=== PATIENT | male | born 1955 | race African-American/Black ===

== ENCOUNTER 2021-03-04 09:50 | Emergency (ER) | payer OTHER ==
[~2021-03-04] VITALS: Ht 172.7 cm; Wt 90.3 kg
[2021-03-04 10:38] LABS: ABSOLUTE NEUTROPHILS 7.4 thou/uL (1.4-8.2); BASOPHILS 0.6 % (0.0-2.0); HEMATOCRIT 53.9 % (42.0-52.0); LYMPHOCYTES 11.6 % (24.0-44.0); MCH 21.7 pg (26.0-34.0); MCHC 31.6 g/dL (28.0-37.0); MCV 68.5 fL (80.0-100.0); MONOCYTES 15.2 % (1.0-8.0); PLATELET COUNT 244 thou/uL (150-400); POLYS 72.6 % (36.0-66.0); WBC 10.2 thou/uL (4.0-11.0)
[2021-03-04 10:39] LABS: RBC 7.86 mil/uL (4.50-6.00)
[2021-03-04 11:01] VITALS: BP 129/89
[2021-03-04 11:59] LABS: CALCIUM 8.5 mg/dL (8.5-10.1); CREATININE 1.9 mg/dL (0.7-1.3); POTASSIUM 4.7 mmol/L (3.5-5.1)
[2021-03-04 12:05] LABS: ALBUMIN 3.4 g/dL (3.4-5.0); TOTAL BILIRUBIN 0.4 mg/dL (0.2-1.0); TOTAL PROTEIN 8.1 g/dL (6.4-8.2)
[2021-03-04 13:49] LABS: ANISOCYTOSIS 2+; MICROCYTES 2+; POIKILOCYTOSIS 2+
== END 2021-03-04 12:46 | disposition home or self-care (01) ==
LOC: ER 09:50
PROVIDERS: Emergency Medicine
DX: U07.1 COVID-19 (principal); R11.2 Nausea with vomiting, unspecified; E11.9 Type 2 diabetes mellitus without complications

== ENCOUNTER 2021-03-08 19:12 | Inpatient (IN) | payer OTHER ==
[~2021-03-08] VITALS: Ht 172.7 cm; Wt 91.0 kg
[2021-03-08 19:20] VITALS: BP 146/94
[2021-03-08 20:10] LABS: HCO3 16.1 mmol/L (22.0-26.0); PCO2 27.9 mmHg (35.0-45.0); PO2 76.9 mmHg (80.0-100.0); sO2 95.4 % (92.0-98.0)
[2021-03-08 20:47] LABS: ALBUMIN 2.4 g/dL (3.4-5.0); CALCIUM 8.5 mg/dL (8.5-10.1); DIRECT BILIRUBIN 0.1 mg/dL (<0.1-0.2); MAGNESIUM 4.2 mg/dL (1.8-2.4); PHOSPHORUS 5.8 mg/dL (2.5-4.9); TOTAL BILIRUBIN 0.4 mg/dL (0.2-1.0); TOTAL PROTEIN 8.1 g/dL (6.4-8.2)
[2021-03-08 21:29] LABS: CREATININE 2.3 mg/dL (0.7-1.3)
[2021-03-08 21:30] LABS: HEMATOCRIT 49.5 % (42.0-52.0); HEMOGLOBIN 15.3 gm/dL (14.0-18.0); MCH 21.5 pg (26.0-34.0); MCV 69.5 fL (80.0-100.0); PLATELET COUNT 294 thou/uL (150-400); RDW 15.3 % (10.5-14.5); WBC 14.3 thou/uL (4.0-11.0)
[2021-03-08 21:36] LABS: RBC 7.13 mil/uL (4.50-6.00)
[2021-03-08 21:44] LABS: POTASSIUM 6.4 mmol/L (3.5-5.1)
[2021-03-08 22:45] LABS: ANISOCYTOSIS 2+; ATYPICAL LYMPHS 2 %; METAMYELOCYTES 2 %; POIKILOCYTOSIS 2+
[2021-03-08 22:46] LABS: TARGET CELLS 1+; TEARDROPS 1+
[2021-03-08 23:48] VITALS: BP 129/80
[2021-03-08 23:57] LABS: URINE BILIRUBIN NEGATIVE (Negative); URINE BLOOD 2+ (Negative); URINE CLARITY CLEAR; URINE COLOR YELLOW; URINE GLUCOSE-RANDOM* 3+ (Negative); URINE KETONES 1+ (Negative); URINE LEUKOCYTES-REFLEX NEGATIVE (Negative); URINE NITRITE-REFLEX NEGATIVE (Negative); URINE PROTEIN (DIPSTICK) 1+ (Negative); URINE SPECIFIC GRAVITY 1.025 (1.005-1.035); URINE UROBILINOGEN 0.2 E.U./dl (0.2-1.0)
[2021-03-09 01:18] LABS: POTASSIUM 4.9 mmol/L (3.5-5.1)
[2021-03-09 01:19] LABS: CREATININE 1.8 mg/dL (0.7-1.3); MAGNESIUM 3.9 mg/dL (1.8-2.4)
[2021-03-09 01:29] LABS: BACTERIA-REFLEX 1-9 Few /HPF (None Seen); CELLULAR CASTS 0-3 Few /LPF (None Seen); CRYSTALS None Seen /LPF (None Seen); HYALINE CASTS 0-3 Few /LPF (None Seen); MUCUS 0-3 Light strn/LPF (None Seen); SQUAMOUS 0-3 Few /LPF (0-3); URINE RBC 3-10 Few /HPF (NONE SEEN); URINE WBC-REFLEX 0-5 Rare /HPF (0-5)
[2021-03-09 01:53] LABS: PHOSPHORUS 4.3 mg/dL (2.5-4.9)
[2021-03-09 07:20] LABS: CREATININE 1.6 mg/dL (0.7-1.3); MAGNESIUM 3.9 mg/dL (1.8-2.4); PHOSPHORUS 2.5 mg/dL (2.5-4.9); POTASSIUM 4.3 mmol/L (3.5-5.1)
--- NOTE | 2021-03-09 07:49 | EKG ---
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
--- NOTE | 2021-03-09 10:06 | EKG ---
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
--- NOTE | 2021-03-09 10:26 | 2DMMODE ---
[facility] [place] [address] 2 D/M-MODE ECHOCARDIOGRAM Name: DAREK ASKEW Room #: 170-11 ADM IN M.R.#: [id number] Admission: 03/08/21 Attend Phys: Lalo Gonzalez MD Discharge: Date of : 55 Report #: [id number] THIS REPORT FOR: cc: FAM - Family physician unknown FAM - Family physician unknown Jorge Luis Woodward MD [facility] ~ APPROVED REPORT Study performed: 03/09/2021 09:55:52 EXAM: Limited 2D, Doppler, and color-flow Echocardiogram Patient Location: ER Status: routine BSA: 2.04 HR: 100 bpm BP: 130/76 mmHg Rhythm: Tachycardia Other Information Study Quality: Adequate Indications Abnormal EKG. COVID + Aortic Valve AoV Peak Guero.: 1.13 m/s AO Peak Gr.: 5.13 mmHg Mitral Valve E/A Ratio: 0.8 MV Decel. Time: 215.64 ms MV E Max Guero.: 0.61 m/s MV A Guero.: 0.75 m/s MV PHT: 62.53 ms Pulmonary Valve PV Peak Guero.: 0.77 m/s PV Peak Gr.: 2.36 mmHg Tricuspid Valve RAP Estimate: 5.00 mmHg Left Ventricle The left ventricle is normal size. There is normal LV segmental wall motion. There is normal left ventricular wall thickness. Left [facility] [address] [place] [address] 2 D/M-MODE ECHOCARDIOGRAM Name: DAREK ASKEW Room #: 170-11 ADM IN M.R.#: [id number] Admission: 03/08/21 Attend Phys: Lalo Gonzalez, Discharge: Date of : 55 Report #: [id number] ventricular systolic function is normal. LVEF is 55-60%. Mild diastolic dysfunction is present (impaired relaxation pattern). Right Ventricle The right ventricle is normal size. The right ventricular systolic function is normal. Atria The left atrium size is normal. The right atrium size is normal. Aortic Valve The aortic valve is normal in structure. No aortic regurgitation is present. There is no aortic valvular stenosis. Mitral Valve The mitral valve is normal in structure. There is no mitral valve regurgitation noted. No evidence of mitral valve stenosis. Tricuspid Valve The tricuspid valve is normal in structure. There is no tricuspid valve regurgitation noted. Unable to assess PA pressure. Pulmonic Valve The pulmonary valve is normal in structure. There is no pulmonic valvular regurgitation. Great Vessels The aortic root is normal in size. IVC is normal in size and collapses >50% with inspiration. Pericardium There is no pericardial effusion. <Conclusion> Normal left ventricular size/wall thickness Ejection fraction of 60% Grade 1 diastolic dysfunction Normal right ventricular size/function Normal atrial size Normal aortic/mitral valve structure and function No tricuspid valve insufficiency [facility] [address] [place] [address] 2 D/M-MODE ECHOCARDIOGRAM Name: AZARDAREK Room #: 170-11 ADM IN M.R.#: [id number] Admission: 03/08/21 Attend Phys: Lalo Gonzalez, Discharge: Date of : 55 Report #: [id number] No pericardial effusion Normal aortic root size. <ELECTRONICALLY SIGNED> By: Jorge Luis Woodward MD, FACC 03/09/215 1025 24 Jorge Luis Woodward MD, FACC /INF
[2021-03-09 14:45] VITALS: BP 126/78
[2021-03-09 18:21] VITALS: BP 140/80
[2021-03-09 22:45] VITALS: BP 122/77
[2021-03-10] VITALS (8 sets, daily range): BP systolic 105–140; BP diastolic 60–91
--- NOTE | 2021-03-10 04:08 | NUR ---
ADMIT FROM ED. PRESENTED WITH WEAKNESS, FEELING THOUGH FSBS ELEVATED, DEHYDRATION. POSITIVE FOR COVID SINCE 03/04/21. PT BOARDED IN ED SINCE YESTERDAY, RECEIVED INSULIN DRIP AND IVF FOR FSBS OF 590. PT VERBALIZED UNDERSTANDING OF NEED FOR UA. MRSA OBTAINED. PT VERBALIZED NEED TO CALL FOR ASSIST FOR AMBULATION DUE TO WEAKNESS AND IVF. MED HX BPH, HIGH CHOLESTEROL, COVID.
--- NOTE | 2021-03-10 04:19 | NUR ---
TALKED WITH CT, CONTACTED PROVIDER RE ELEVATED CREATNINE AND PROTOCOL. LABS BEING DRAWN, WAITING ON NEW LAB RESULTS PRIOR TO CT.
[2021-03-10 04:59] LABS: BASOPHILS 0.2 % (0.0-2.0); HEMATOCRIT 45.3 % (42.0-52.0); HEMOGLOBIN 13.6 gm/dL (14.0-18.0); LYMPHOCYTES 4.1 % (24.0-44.0); MCHC 30.1 g/dL (28.0-37.0); MCV 69.6 fL (80.0-100.0); PLATELET COUNT 255 thou/uL (150-400); POLYS 90.7 % (36.0-66.0); RDW 15.1 % (10.5-14.5); WBC 13.2 thou/uL (4.0-11.0)
[2021-03-10 05:38] LABS: ALBUMIN 1.8 g/dL (3.4-5.0); ANION GAP 11 mmol/L (7-16); BUN 37 mg/dL (7-18); CHLORIDE 116 mmol/L (98-107); CO2 22 mmol/L (21-32); CREATININE 1.3 mg/dL (0.7-1.3); GLUCOSE 276 mg/dL (74-106); POTASSIUM 4.9 mmol/L (3.5-5.1); SGOT 39 U/L (15-37); SGPT 25 U/L (30-65); SODIUM 149 mmol/L (136-145); TOTAL BILIRUBIN 0.3 mg/dL (0.2-1.0); TOTAL PROTEIN 6.4 g/dL (6.4-8.2)
[2021-03-10 06:06] LABS: GLYCOHEMOGLOBIN (HGB A1C) 11.1 % (4.8-5.6)
--- NOTE | 2021-03-10 06:15 | NUR ---
CT CALLED LEFT MESSAGE THAT LAURENCE WNL, SO THAT CT CAN BE OBTAINED.
--- NOTE | 2021-03-10 06:47 | NUR ---
PT INSTRUCTED TO USE URINAL, HOWEVER HE URINATED ON FLOOR. BED ALARM ON. PT REMINDED OF NEED FOR URINE SAMPLE.
--- NOTE | 2021-03-10 18:06 | NUR ---
ASSUMED PATIENT CARE AT 0700. A/O X4. INCREATED 02 NEEDS. PATIENT IS ON 4L/NC. VQ SCAN NEGATIVE FOR PE. NOTED HR UP TO 180 AT 1720. POWERTRAIN CALIBRATION ENGINEER CALLED SEE CHART. IV TEAM IS HERE INSERT PICC LINE TO INFUSION AMIO GTT. VSS. LOW GRADE TEMP. WILL KEEP MONITOR.
[2021-03-10 18:17] LABS: CREATININE 1.2 mg/dL (0.7-1.3); POTASSIUM 4.4 mmol/L (3.5-5.1)
[2021-03-10 18:29] LABS: MAGNESIUM 3.4 mg/dL (1.8-2.4)
[2021-03-11] VITALS: BP 122/77
--- NOTE | 2021-03-11 00:56 | NUR ---
PT ALERT AND ORIENTED X2. MILDLY CONFULSED. INSTRUCTED ON FALL PRECAUTIONS AND NOT TO GET OOB WITHOUT HELP. CALL LIGHT IN REACH. BED ALARM IS ON. HR WAS AFIB IN 160-180S AT START OF SHIFT. AMIODARONE GTT INFUSING AT 33ML/HR. NOTIFIED DR SHELBY HR ELEVATED. TOPROLOL 50 MG GIVEN PO ORDERED. HR STILL HIGH. DIGOXIN GIVEN 0.5MG IV. HR NOW IN SR RT 96. PT IS SLEEPING QUIETLY. NO S/S DISTRESS. DR RODRIGUEZ CAME TO SEE PT. REMDESIVIR STARTED ORDERED. WILL CONTINUE TO MONITOR PT FOR CHANGES.
[2021-03-11 03:47] VITALS: BP 124/70
[2021-03-11 05:30] VITALS: BP 117/73
[2021-03-11 05:49] LABS: HEMOGLOBIN 12.3 gm/dL (14.0-18.0); MCH 21.1 pg (26.0-34.0); MCHC 30.8 g/dL (28.0-37.0); MCV 68.4 fL (80.0-100.0); PLATELET COUNT 273 thou/uL (150-400); RBC 5.86 mil/uL (4.50-6.00); WBC 9.3 thou/uL (4.0-11.0)
[2021-03-11 06:04] LABS: ALBUMIN 1.6 g/dL (3.4-5.0); CALCIUM 7.6 mg/dL (8.5-10.1); CREATININE 1.1 mg/dL (0.7-1.3); POTASSIUM 4.9 mmol/L (3.5-5.1); TOTAL BILIRUBIN 0.3 mg/dL (0.2-1.0); TOTAL PROTEIN 6.1 g/dL (6.4-8.2)
[2021-03-11 07:12] VITALS: BP 122/69
--- NOTE | 2021-03-11 08:28 | NUR ---
NOTIFIED DR GREENBERG PT'S HR INCREASED BACK UP TO 150'S . ANOTHER 150mg IV AMIODARONE BOLUS GIVEN ORDERED. HR DOWN TO 130S SINCE THEN. PT ASYMPTOMATIC THROUGH OUT NIGHT. NOTIFIED PARACHUTE RIGGER PT HAS A TEMP THIS AM. TYLENOL GIVEN. NO OTHER ORDERS GIVEN REGARDING TEMP. AFEW BLANKETS REMOVED AND IPAIR OF SOCKS REMOVED.
[2021-03-11 08:53] LABS: ANISOCYTOSIS 1+; METAMYELOCYTES 1 %; MICROCYTES 2+; PLATELET ESTIMATE NORMAL
--- NOTE | 2021-03-11 12:58 | EKG ---
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1955 Requested By: Arsenio Watkins Order Number: [id number] MD: Ulysses Antonio Measurements Intervals [place] Rate: 178 P: [place]: QRS: 47 QRSD: 91 T: -6 QT: 277 QTc: 477 Interpretive Statements Atrial fibrillation with rapid V-rate Occasional aberrant conduction Nonspecific ST segment abnormality Baseline wander in lead(s) V1,V2,V3 Compared to ECG 03/09/2021 08:39:33 Atrial fibrillation has replaced sinus rhythm Electronically Signed On 03-11-2021 12:57:49 MARKETING SEGMENT MANAGER by Ulysses Antonio [email or web address] <ELECTRONICALLY SIGNED> By: Ulysses Antonio MD, [facility] 03/11/21 1257 1725 1725 Ulysses Antonio MD, [facility] /EPI
[2021-03-11 15:40] VITALS: BP 129/80
[2021-03-11 19:16] VITALS: BP 122/82
--- NOTE | 2021-03-12 00:51 | NUR ---
PT ALERT AND ORIENTED X3. REORIENTED TO CORRECT PLACE. VSS AFEBRILE. UMLABORED ON 5LNC. HR AFIB ON MONITOR MAINLY IN THE 120S. DENIED PAIN. PT STATED HE IS FEELING BETTER THAN YESTERDAY. NO N/V TONIGHT. BED DOWN CALL LIGHT IN REACH.
--- NOTE | 2021-03-12 02:39 | NUR ---
PT RESTING QUIETLY. VSS AFEBRILE. UNLABORED ON 5LNC. AMIODARONE GTT INFUSING. HR FLUCTUATING 110s-130s. MAINLY IN 120s. PT ASYMPTOMATIC. NO C/O.
[2021-03-12 03:30] VITALS: BP 117/76
[2021-03-12 06:06] LABS: HIV ANTIBODY Non Reactive (Non Reactive)
[2021-03-12 06:11] LABS: ALBUMIN 1.5 g/dL (3.4-5.0); CALCIUM 7.7 mg/dL (8.5-10.1); CREATININE 1.2 mg/dL (0.7-1.3); DIRECT BILIRUBIN 0.1 mg/dL (<0.1-0.2); PHOSPHORUS 2.1 mg/dL (2.6-4.7); POTASSIUM 4.6 mmol/L (3.5-5.1); TOTAL BILIRUBIN 0.3 mg/dL (0.2-1.0)
--- NOTE | 2021-03-12 06:30 | NUR ---
PT PROGRESSING TOWAARDS D/C GOALS. VSS. HR 110-120S PRESENTLY. NO C/O PAIN. NO S/S DISTRESS. AMIODARONE STILL INFUSING.
[2021-03-12 07:08] VITALS: BP 145/89
--- NOTE | 2021-03-12 08:30 | NUR ---
PT NOTED TO HAVE LT HAND/LT ARM EDEMA 3-4+...NOTIFIED DR LEWIS AND PLACED ORDER FOR A VENOUS DOPPLER TO EDWARD...PAGED IV TEAM TO ASSESS PICC...
[2021-03-12 15:14] VITALS: BP 118/73
--- NOTE | 2021-03-12 16:00 | NUR ---
PT VENOUS DOPPLER SHOWED OCCLUSIVE DVT TO BRACHIAL VEIN AND NONOCCLUSIVE SUPERFICIAL THROMBUS TO LT CEPHALIC VEIN..NOTIFIED DR LEWIS ANS HE STATED TO DC THE PICC LINE AND PLACE WARM WASHCLOTHS TO LT ARM...INFORMED DR LEWIS THAT CARDIOLOGY DC'D HEPARIN TODAY AND STARTED ELIQUIS FOR THIS SALINAS...
--- NOTE | 2021-03-12 16:02 | NUR ---
INITIAL ASSESSMENT: Received consult. MAI reviewed chart and spoke with nursing and attending physician. Pt was admitted from home due to hyperglycemia, weakness, COVID. Pt placed in Enhanced Isolation. Per chart, pt has not received a COVID vaccination. Pt is afebrile and on 5L of O2. Pt is on IV meds and Remdesivir. Pt is amio gtt per cardiology. RESTORATIVE AIDE called due to Afib. UE doppler ordered today to r/o DVT. PT/OT evals on hold at this time. MAI placed call to pt's room. No answer. Pt noted to be alert/orientated x 4. Pt lives at home. MAI notified that pt's listed insurance ([employer]) covers first 5 days of hospitalization. Pt does have Medicare Part A as secondary insurance. MAI is following to assist as needed with discharge planning.
[2021-03-12 19:22] VITALS: BP 107/70
[2021-03-13] VITALS (23 sets, daily range): BP systolic 106–144; BP diastolic 65–98
--- NOTE | 2021-03-13 01:20 | NUR ---
PT ALERT X2. MILDLY CONFUSED AT TIMES. HE ACCIDENTALLY PULLED OUT HIS IV WHILE ATTEMPTING TO MOVE UP IN BED. UPON ASSESSING PT, PT'S LEFT FOOT WAS COOLER THAN RIGHT FOOT AND LEG. HE STATED HE WAS HAVING DIFFICULTY WARMING UP.
--- NOTE | 2021-03-13 01:37 | NUR ---
NOTIFED SHOW HOST/HOSTESS. US ARTERIAL DOPPLERS DONE AND RESULTS CALLED TO ME BY RADIOLOGIST. I THEN CALLED SHOW HOST/HOSTESS WITH RESULTS FOR FEMORAL ARTERY OCCLUSION. DR REEVES NOTIFIED. DR PARISH REQUESTED HEPARIN GTT TO BE STARTED. NETWORK SYSTEMS CONSULTANT CHRISTI WAS NOTIFIED OF NO IV ACCESS AT THE TIME. AMIDARONE GTT DC'D AND WILL START PO IN AM TO BE ORDERED BY ROUNDING NETWORK SYSTEMS CONSULTANT IN AM. PT IN NSR PRESENTLY 80S. HEPARIN GTT BOLUS GIVEN AND DRIP WAS ABOUT TO BE STARTED. FARM MACHINERY ASSEMBLER SPOKE WITH DR RING AND DR RING DECIDED TO COME IN TO SEE PT AND DO SURGERY TONIGHT HEPARIN BOLUS WAS GIVEN BUT DRIP HAD NOT BEEN INITIATED YET. HEPARIN DC'D. DR RING CAME JANIA SEE PT. AND DI FEMORAL STICK TO OBTAIN LABS. LEFT EJ PLACED BY LUI FROM ER. PT MADE NPO FOR THROMBOLECTOMY.
[2021-03-13 02:09] LABS: ABSOLUTE NEUTROPHILS 1.8 thou/uL (1.4-8.2); BASOPHILS 0.2 % (0.0-2.0); EOSINOPHILS 3.4 % (0.0-3.0); HEMATOCRIT 42.9 % (42.0-52.0); HEMOGLOBIN 13.6 gm/dL (14.0-18.0); LYMPHOCYTES 19.1 % (24.0-44.0); MCH 21.2 pg (26.0-34.0); MCHC 31.7 g/dL (28.0-37.0); MONOCYTES 6.2 % (1.0-8.0); POLYS 71.1 % (36.0-66.0); RDW 14.7 % (10.5-14.5); WBC 2.5 thou/uL (4.0-11.0)
[2021-03-13 02:12] LABS: PLATELET COUNT 119 thou/uL (150-400)
[2021-03-13 02:15] LABS: ALBUMIN 1.5 g/dL (3.4-5.0); CALCIUM 7.7 mg/dL (8.5-10.1); CREATININE 1.2 mg/dL (0.7-1.3); DIRECT BILIRUBIN 0.1 mg/dL (<0.1-0.2); POTASSIUM 4.8 mmol/L (3.5-5.1); TOTAL BILIRUBIN 0.5 mg/dL (0.2-1.0); TOTAL PROTEIN 6.3 g/dL (6.4-8.2)
--- NOTE | 2021-03-13 02:31 | NUR ---
PT CONSENTED FOR LLE THROMBECTOY/ EMBOLECTOMY. LEFT TO [facility] AT APPROXIMATELY [address]15. DR RING WAS MADE AWARE PT HAD 7000 U BOLUSOF HEPARIN PRIOR TO GOING TO SURGERY AND PRIOR TO FEMORAL STICK FOR LABS. NO BLEEDING NOTED PRIOR TO LEAVING UNIT. REPORT CALLED TO ORACIO IN ICU.
--- NOTE | 2021-03-13 06:20 | NUR ---
PT RECEIVED FROM OPERATING ROOM. PATIENT INITIAL ASSESSMENT COMPLETED. NRB AT 10 L AND 02 SATS LOW 90s. AWAKE, ALERT, BUT A LITTLE DROWSY. PATIENT ANSWERS QUESTIONS APPROPRIATELY AND FOLLOWING COMMANDS. 14 DAY PETER DRESSING TO LEFT GROIN AREA AND DRESSING TO LEFT POPLITEAL. LEFT LOWER EXTREMITY CONTINUES TO FEEL COLD AND APPEARS PALE AND STILL REQUIRING DOPPLER - WARM BLANKETS APPLIED.
--- NOTE | 2021-03-13 07:24 | O ---
[facility] [place] [address] OPERATIVE REPORT Name: DAREK ASKEW Room #: 238-P ADM IN M.R.#: [id number] Admission: 03/08/21 Attend Phys: Lalo Gonzalez MD Discharge: Date of : 55 Report #: [id number] THIS REPORT FOR: cc: FAM - Family physician unknown FAM - Family physician unknown Zaheer Vora MD ~ DATE OF SERVICE: 03/13/2021 PREOPERATIVE DIAGNOSIS: Acute arterial insufficiency, left lower extremity. POSTOPERATIVE DIAGNOSIS: Acute arterial insufficiency, left lower extremity. OPERATIONS: Left femoral thrombectomy and left popliteal artery thrombectomy. SURGEON: Zaheer Vora M.D. ANESTHESIA: General. INDICATIONS: The patient is a 66-year-old who had the acute onset of lower extremity arterial insufficiency. I was called emergently after a Doppler showed left superficial femoral artery occlusion. This was thought related to embolism due to new atrial fibrillation that occurred in the setting of COVID pneumonitis. The patient is a diabetic. He denies previous lower extremity claudication symptoms. He is a former smoker, but quit in his 20s and the contralateral extremity has dorsalis pedis pulse. FINDINGS AND TECHNIQUE: After general anesthesia was established, an oblique left groin incision was made to expose the common, deep and superficial femoral arteries. 10,000 units of heparin were given. The femoral vessels were occluded and a transverse femoral arteriotomy was made. Darell catheter was passed antegrade and distally into the common, deep and superficial femoral arteries respectively. A reasonable amount of thrombus was obtained through the superficial femoral artery. This was largely dark clotted blood, but there was some white clot with it. After several negative passes of the Darell, the arteriotomy was closed and flow was reestablished. A Doppler was used to interrogate the vessel. I was not satisfied with the distal signal, however, and made a decision to perform a lower thrombectomy. An incision was made below and medial to the left knee to expose the popliteal artery. This was controlled. Arteriotomy was made and the Darell catheter was [facility] [address] [place] [address] OPERATIVE REPORT Name: DAREK ASKEW Room #: 238-P [facility] IN M.R.#: [id number] Admission: 03/08/21 Attend Phys: Lalo Gonzalez MD Discharge: Date of : 55 Report #: [id number] passed antegrade and distally. A large amount of thrombus was obtained in both directions. After several negative passes of the catheter proximally and distally, arteriotomy was closed. The artery was interrogated with the Doppler. The distal signal seemed a bit attenuated and made the decision to repeat the distal thrombectomy. Two of the sutures and the transverse arteriotomy were removed and further passage of the Darell catheter was made. I also used several passes with a smaller catheter. None of these passes yielded any thrombus, however. Once again, the arteriotomy was closed and flow was reestablished. Doppler signal seemed reasonable and it was clear that we had exhausted the full benefits of the technique. Hemostasis in all areas was ascertained despite the heparin and the Eliquis that had been given previously. The wounds were closed in layers and the patient was taken to the recovery area where his progress was monitored. All counts were reported as correct. <ELECTRONICALLY SIGNED> By: Zaheer Vora MD 03/13/21 0724 0529 0559 Zaheer Vora MD /nt
--- NOTE | 2021-03-13 07:25 | NUR ---
VARIANCE NOTE: PT W/ L FEMORAL EMBOLECTOMY AND L POPLITEAL EMBOLECTOMY BY DR. RING EARLY THIS DATE, W/ SUBSEQUENT TRANSFER TO ICU. WILL PLACE PT ON HOLD AND AWAIT NEW O.T. EVALUATION ORDERS.
--- NOTE | 2021-03-13 07:59 | NUR ---
ORDERS FOR EVAL AND TREAT HOWEVER Pt TRANSFERRED TO ICU. WILL PLACE ON HOLD AND AWAIT NEW ORDERS WHEN APPROPRIATE
--- NOTE | 2021-03-13 19:23 | NUR ---
pt arrived from poultry farm laborer to ICU around 1430 pm. pt has right groin mynx dressing. skin at the right groin and left groin was checked with poultry farm laborer RN. No redness, edema and hematoma at the bilateral groin site. Pt on bedrest for 8hours. Bedrest over at 1030pm. Heparin gtt started at 1636pm as per Larissa house. No heparin bolus given as per SHANDA Kurtz. Pt on NBR on arrival to ICU and now on 10L high flow NC.
[2021-03-13 23:28] LABS: HEMATOCRIT 36.8 % (42.0-52.0); MCH 21.1 pg (26.0-34.0); MCHC 31.3 g/dL (28.0-37.0); MCV 67.2 fL (80.0-100.0); RBC 5.48 mil/uL (4.50-6.00); RDW 14.8 % (10.5-14.5)
[2021-03-13 23:38] LABS: CALCIUM 7.1 mg/dL (8.5-10.1); CREATININE 1.3 mg/dL (0.7-1.3); POTASSIUM 4.5 mmol/L (3.5-5.1)
[2021-03-13 23:47] LABS: HEMOGLOBIN 11.5 gm/dL (14.0-18.0)
[2021-03-13 23:48] LABS: WBC 0.8 thou/uL (4.0-11.0)
[2021-03-13 23:49] LABS: INR 1.19; PROTIME 12.9 Seconds (10.5-12.1)
[2021-03-13 23:50] LABS: APTT 34.7 Seconds (24.5-32.8)
[2021-03-14] VITALS (21 sets, daily range): BP systolic 106–132; BP diastolic 63–82
[2021-03-14 06:02] LABS: HEMATOCRIT 39.2 % (42.0-52.0); HEMOGLOBIN 12.2 gm/dL (14.0-18.0); MCH 21.2 pg (26.0-34.0); MCHC 31.2 g/dL (28.0-37.0); MCV 67.8 fL (80.0-100.0); PLATELET COUNT 88 thou/uL (150-400); RBC 5.78 mil/uL (4.50-6.00)
[2021-03-14 06:17] LABS: WBC 0.9 thou/uL (4.0-11.0)
[2021-03-14 06:20] LABS: ALBUMIN 1.4 g/dL (3.4-5.0); CREATININE 1.2 mg/dL (0.7-1.3); DIRECT BILIRUBIN 0.1 mg/dL (<0.1-0.2); PHOSPHORUS 2.7 mg/dL (2.5-4.9); POTASSIUM 4.8 mmol/L (3.5-5.1); TOTAL BILIRUBIN 0.3 mg/dL (0.2-1.0); TOTAL PROTEIN 5.8 g/dL (6.4-8.2)
[2021-03-14 10:42] LABS: ABSOLUTE NEUTROPHILS 0.4 thou/uL (1.4-8.2); NUCLEATED RBCS 1 /100WBC
[2021-03-14 10:44] LABS: BURR CELLS 2+
[2021-03-14 10:45] LABS: ANISOCYTOSIS 2+; POIKILOCYTOSIS 1+
[2021-03-14 10:46] LABS: MICROCYTES 1+
--- NOTE | 2021-03-14 14:12 | NUR ---
TALKED TO PATIENT FAMILY SHERRY AND CAROLYN ABOUT HOW PATIENT WAS DOING. THEY ASKED TO SPEAK WITH THE DOCTOR. MESSAGED DOCTOR JOSHUA AND HE SAID OK HE WOULD CALL THEM. PATIENT IS GOTTEN UP TO CHAIR WITH LEFT ARM ELEVATED @ 1000. PATIENTS PHONE BROUGHT OUT TO NURSING STATION TO CHARGE TO HE CAN CALL FAMILY HIMSELF LATER. PATIENT HAS BEEN EATTING WELL. GERMANNET IS RESTING IN CHAIR WITH CALL ROMERO IN REACH.
--- NOTE | 2021-03-14 19:15 | NUR ---
HUMPHREY HELP BACK TO BED BY THIS RN. HE WAS SITTING IN CHAIR FOR BREAKFAST LUNCH AND DINNER. PATIENT IS RESTING IN BED WITH CALL ROMERO IN REACH.
[2021-03-15] VITALS (45 sets, daily range): BP systolic 100–137; BP diastolic 53–73
--- NOTE | 2021-03-15 02:17 | NUR ---
Pts PIVs do not draw, lab was unable to draw blood for PTT level. A new shovel handle assembler will be here at 0400 to try to draw blood. Physcians aware that pts vascular access is limited and needs a central line. Plan is to place a TLC today per ID
--- NOTE | 2021-03-15 02:20 | NUR ---
Pt had increasing oxygen requiremnts overnight along with being lethargic. Dr. Man consulted per Larissa Rashid NP. Pt went from 40L 100%, to 45L 100 with 15L NRB, to 60L 100% with 15L NRB. Dr. Man ordered stat chest xray and Gay ordered bipap. Pt currently satting 94% on bipap at 80% fi02.
--- NOTE | 2021-03-15 07:17 | NUR ---
Called Dr. Rashid at 0200 about labs unsuccessful attempts to draw blood and called her again at 0500 about their second unsuccessful attempt. Plans for IV team consult for a TLC.
[2021-03-15 12:07] LABS: HEMATOCRIT 33.6 % (42.0-52.0); HEMOGLOBIN 10.8 gm/dL (14.0-18.0); MCH 21.1 pg (26.0-34.0); MCHC 32.2 g/dL (28.0-37.0); MCV 65.4 fL (80.0-100.0); OBSERVED RETIC COUNT 0.82 % (0.6-2.6); RBC 5.14 mil/uL (4.50-6.00); RDW 14.6 % (10.5-14.5)
[2021-03-15 12:09] LABS: WBC 0.7 thou/uL (4.0-11.0)
[2021-03-15 12:16] LABS: ALBUMIN 1.3 g/dL (3.4-5.0); CREATININE 1.1 mg/dL (0.7-1.3); DIRECT BILIRUBIN 0.2 mg/dL (<0.1-0.2); PHOSPHORUS 3.6 mg/dL (2.5-4.9); POTASSIUM 4.5 mmol/L (3.5-5.1); TOTAL BILIRUBIN 0.4 mg/dL (0.2-1.0); TOTAL PROTEIN 5.8 g/dL (6.4-8.2)
[2021-03-15 12:42] LABS: ABSOLUTE NEUTROPHILS 0.3 thou/uL (1.4-8.2); METAMYELOCYTES 3 %; NUCLEATED RBCS 1 /100WBC
[2021-03-15 12:43] LABS: ANISOCYTOSIS 1+; LARGE PLATELETS FEW; MICROCYTES 2+; PLATELET COUNT 93 thou/uL (150-400); PLATELET ESTIMATE SLIGHTLY DECREASED
[2021-03-15 13:48] LABS: % SATURATION 10 % (20-39); IRON 10 ug/dL (65-175); TIBC 105 ug/dL (250-450)
--- NOTE | 2021-03-15 14:02 | NUR ---
A RIGHT IJ CENTRAL LINE WAS PLACED PER HOSPITAL POLICY AFTER A BEDSIDE TIMEOUT WAS COMPLETED. THE 25CM LINE ADVANCED WITHOUT DIFFICULTY. A STAT CHEST XRAY CONFIRMED LINE IN ADEQUATE POSITION AND RELEASED FOR USE
--- NOTE | 2021-03-15 15:07 | PATH ---
[facility] [place] [address] PATHOLOGY RPT PROCEDURE Name: DAREK LEAVITT Room #: 238-P ADM IN M.R.#: [id number] Admission: 03/08/21 Date of : 55 Discharge: Report #: [id number] Path Case #: [id number] [facility] Accession Number: [id number] . 01 Material submitted: . PART A: femur - LEFT FEMORAL CLOT. Modifiers: left PART B: popliteal fossa - LEFT POPLITEAL THROMBUS. Modifiers: left . 01 Clinical history: . FEMORAL EMBOLECTOMY ARTERIAL INSUFFICIENCY LEFT LOWER EXTREMITY . 02 Diagnosis: A. Left femoral clot, excision: - Organizing thrombus; negative for malignancy. . B. Left popliteal thrombus, excision: - Organizing thrombus; negative for malignancy. . (JOSEPH:melody; 03/14/2021) CHAVEZ 03/14/2021 1622 Local . 02 Electronically signed: . Jarod Flowers MD, Pathologist NPI- [id number] . 01 Gross description: . A. The specimen is received in formalin, labeled "Darek Leavitt, left femoral clot". Received are 2 dark red, friable, elongated pieces of apparent clotted hemorrhagic material, measuring 0.6 x 0.5 x 0.5 cm and 4.5 x 0.6 x 0.5 cm. Sectioning reveals a solid dark red homogenous cut surface. Management Scientist cross sections are submitted in cassette A1. . B. The specimen is received in formalin, labeled "Darek Leavitt, left popliteal thrombus". Received is a 4.9 x 1.7 x 0.7 cm aggregate of elena to dark red, solid and friable appearing clotted hemorrhagic material. Sectioning reveals a elena to dark red, solid cut surface. Management Scientist sections are submitted in cassette B1. ([facility]; 03/13/2021) [facility] 03/13/2021 2156 Local . 02 Pathologist provided ICD-10: I82.819 . 02 CPT . 127225, [id number] Specimen Comment: A courtesy copy of this report has been sent to [phone], [place] [address] PATHOLOGY RPT PROCEDURE Name: DAREK LEAVITT Room #: 238-P ADM IN M.R.#: [id number] Admission: 03/08/21 Date of : 55 Discharge: Report #: [id number] Path Case #: [id number] Specimen Comment: [id number] Specimen Comment: Report sent to / DR ARIAS Specimen Comment: A duplicate report has been generated due to demographic updates. Performed at: 01 [facility] [address] [id number] MD Erick Figueroa MD Phone: [phone] Performed at: [address] [id number] MD Jonas Junior MD Phone: [phone]
[2021-03-16] VITALS (37 sets, daily range): BP systolic 45–141; BP diastolic 24–77
[2021-03-16 06:18] LABS: HEMOGLOBIN 9.3 gm/dL (14.0-18.0); RDW 14.4 % (10.5-14.5)
[2021-03-16 06:20] LABS: HEMATOCRIT 28.8 % (42.0-52.0); MCH 21.1 pg (26.0-34.0); MCHC 32.3 g/dL (28.0-37.0); MCV 65.4 fL (80.0-100.0); PLATELET COUNT 78 thou/uL (150-400); RBC 4.41 mil/uL (4.50-6.00)
[2021-03-16 06:26] LABS: WBC 0.5 thou/uL (4.0-11.0)
[2021-03-16 06:31] LABS: ALBUMIN 1.1 g/dL (3.4-5.0); CALCIUM 6.9 mg/dL (8.5-10.1); CREATININE 1.1 mg/dL (0.7-1.3); POTASSIUM 4.6 mmol/L (3.5-5.1); TOTAL BILIRUBIN 0.3 mg/dL (0.2-1.0); TOTAL PROTEIN 5.3 g/dL (6.4-8.2)
--- NOTE | 2021-03-16 07:46 | NUR ---
PATIENT PROGRESSING SLOWLY TOWARD GOALS AND POC - O2SATS MID-HIGH 90s ON OPTIFLO 40L, 100%, SOBE. PATIENT CONSUMED FOOD AND DRINKS WITHOUT INCIDENT. NO C/O PAIN. LLE TOES BLACK, COLD, BUT SENSATION TO AREA INTACT - PT NODS HEAD YES TO FEELING TOUCH WHEN TOES ARE TOUCHED. URINE OUTPUT ADEQUATE. WILL CONTINUE TO MONITOR AND FOLLOW POC.
[2021-03-16 08:16] LABS: ABSOLUTE NEUTROPHILS 0.2 thou/uL (1.4-8.2)
[2021-03-16 08:17] LABS: METAMYELOCYTES 3 %
[2021-03-16 08:20] LABS: PLATELET ESTIMATE DECREASED
--- NOTE | 2021-03-16 10:11 | HC ---
[facility] [place] [address] CONSULTATION Name: DAREK ASKEW Room #: 238-P ADM IN M.R.#: [id number] Admission: 03/08/21 Attend Phys: Lalo Gonzalez MD Discharge: Date of : 55 Report #: [id number] THIS REPORT FOR: cc: FAM - Family physician unknown FAM - Family physician unknown Zaheer Vora MD ~ DATE OF SERVICE: 03/13/2021 HISTORY OF PRESENT ILLNESS: We were consulted emergently to see the patient for acute arterial insufficiency of the left lower extremity. The patient is a 66-year-old admitted on 03/08 with COVID. The patient over the course of the hospitalization was found to have venous thrombosis in the upper extremity and also he developed a cold left lower extremity. The patient states that the cold lower extremity began some 24 hours ago, but earlier on the night of the , the lower extremity arterial Doppler was performed. This was read as showing superficial femoral artery thrombosis on the left. This was thought to be related to embolism from new onset atrial fibrillation and I was consulted to see the patient for embolectomy. As mentioned, the patient was admitted on 03/08/2021, the patient began having symptoms a week ago on Friday, which began with feelings of weakness and loss of energy. The patient also developed abdominal discomfort and had some nausea and vomiting. The patient apparently had a positive COVID test. PAST MEDICAL HISTORY: Significant for type 2 diabetes mellitus. The patient denies other medical problems. 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 He is a former smoker, but quit in his early 20s. ALLERGIES: None known. REVIEW OF SYSTEMS: GENERAL: As mentioned, the patient has a recent history of weakness and fatigue. EYES: Denies vision change. HEENT: Denies headache, sinus discomfort. RESPIRATORY: Complains of cough and shortness of breath. CARDIAC: Denies chest pain, palpitations, although did have recent atrial fibrillation in the hospital. GASTROINTESTINAL: History of nausea and vomiting at home. GENITOURINARY: Denies urgency or frequency. MUSCULOSKELETAL: Denies bone or joint pain. [facility] [address] [place] [address] CONSULTATION Name: DAREK ASKEW Room #: 238-P [facility] IN M.R.#: [id number] Admission: 03/08/21 Attend Phys: Lalo Gonzalez MD Discharge: Date of : 55 Report #: [id number] SKIN: Denies rash or infection. NEUROLOGIC: Denies motor or sensory dysfunction. PHYSICAL EXAMINATION: GENERAL: The patient is in bed. VITAL SIGNS: Temperature 36.8, heart rate 88, respiratory rate 20, blood pressure 144/98, pulse ox 91 on 5 liters. HEENT: No scleral icterus. No arcus. NECK: No mass, no bruit. CHEST: Clear to auscultation. HEART: Rhythm regular at this point. ABDOMEN: Soft. EXTREMITIES: Left lower extremity is cold, but there is motion and calf is tender to palpation, but does not feel ____. Vascular pulses, right femoral pulse 2+, left femoral pulse 1+, right dorsalis pedis 2+, left popliteal, dorsalis pedis and posterior tibial pulses are 0. SKIN: No rash or infection. NEUROLOGIC: No motor or sensory dysfunction. Still has motion and sensation in the left foot. PSYCHIATRIC: Shows insight into problem, oriented x 3 and appropriate. ASSESSMENT AND PLAN: The patient has arterial insufficiency, left lower extremity; unusual story in that the patient has recent onset atrial fibrillation in the hospital. The patient does not have a previous history of claudication, however, do suggest thrombosis at a prior area of stenosis and the contralateral extremity has a good distal pulse. We note the patient had been started on Eliquis after heparin, we can reverse this with Kcentra if needed. I reviewed the situation with the patient. There is some evidence for lower extremity arterial embolism versus thrombosis. As such, embolectomy would be appropriate. Risks and details of this were discussed. Options and alternatives were reviewed. The need for fasciotomy in certain situation was also discussed. The patient understands all of this and wishes to proceed as recommended. I have arranged for emergency surgery for left femoral embolectomy. Thank you for the consult. <ELECTRONICALLY SIGNED> By: Zaheer Vora MD 03/16/21 1011 [id number] Zaheer Vora MD /nt
[2021-03-16 11:07] LABS: HEMOGLOBIN 10.8 g/dL (13.0-17.7)
--- NOTE | 2021-03-16 11:24 | NUR ---
SPOKE TO PATIENT'S DAUGHTER, CAROLYN, AND EX VIA TELEPHONE TODAY. UPDATED ON HIS PROGRESS, DECREASED OXYEN REQ, COMFORTABLE, EATING/DRINKIING AND GETTING REST. FAMILY PLEASED WITH PROGRESS, ADVISED 21 DAY ISOLATION PERIOD FROM COVID+ TEST DATE OF MAR 04. FAMILY WOULD LIKE TO PLAN TO VISIT IN THE NEAR FUTURE. CT SURGERY AND WOUND CARE ROUNDED ON PT, NO NEW INTERVENTIONS R/T COOL/BLACK TOES OF LLE. CONTINUING POC, TRANSFER ORDERS TO [facility]/[address]
--- NOTE | 2021-03-16 11:27 | NUR ---
HEM/ONC, DR CALLAHAN NOTIFIED OF WBC COUNT 0.5 FROM 03/16 AM LABS.
[2021-03-16 16:20] LABS: T-SPOT.TB Negative
--- NOTE | 2021-03-16 16:44 | NUR ---
Opti-flow oxygen. fatigue easily. Po diet. Discussed during los with the attending physician and during unit rounds with pulmonary MD. Covid isolation. No anticipated weekend dc. Possible able to move out of icu soon.
--- NOTE | 2021-03-16 18:16 | NUR ---
PT MADE AWARE OF IMPENDING TRANSFER TO [facility] [place], BELONGINGS COLLECTED INCLUDING CELL PHONE AND POWER BANK AND CORD. SWITCHED FROM OPTIFLOW TO 15L NRB MASK, TRANSFERRED ON THE MONITOR, HANDOFF REPORT GIVEN TO RN FOR [facility] [place] BED 360. FAMILY NOTIFIED OF TRANSFER.
--- NOTE | 2021-03-16 18:20 | NUR ---
PT TRANSFERRED FROM ICU TO ROOM 360. ALERTT AND ORIENTED X4, VITALS STABLE. ON 80%, 35L ON OPTIFLOW. PEDAL AND TIBIAL PULSES PRESENT. LEFT ARM ELEVATED ON PILLOW, EDEMA +3. CONTINUE TO BE IN ENHANCED ISOLATION.
--- NOTE | 2021-03-16 20:05 | NUR ---
PT RESTING IN BED WATCHING TV. BLUNTED AFFECT. OPTI YAJAIRA INTACT, JAMES TO DD. LUE ELEVATED EDEMA. BLE EDEMA, POSITIVE CIRCULATION CHECK IN BILAT UE AND LE. TOES ON LFOOT REMAIN BLACK. LUNGS DIMINISHED. BED ALARM ON. PT VERBALIZED HE WILL CALL FOR ASSISTANCE. PT STATED HE WILL KEEP HIS DINNER TRAY IN CASE HE WANTS TO EAT LATER.
[2021-03-17 04:59] VITALS: BP 133/75
[2021-03-17 05:45] LABS: HEMOGLOBIN 9.1 gm/dL (14.0-18.0)
[2021-03-17 05:49] LABS: HEMATOCRIT 28.3 % (42.0-52.0); MCH 21.1 pg (26.0-34.0); MCHC 32.3 g/dL (28.0-37.0); MCV 65.5 fL (80.0-100.0); RBC 4.32 mil/uL (4.50-6.00); RDW 14.5 % (10.5-14.5)
[2021-03-17 05:54] LABS: CALCIUM 7.5 mg/dL (8.5-10.1); CREATININE 0.9 mg/dL (0.7-1.3); POTASSIUM 4.4 mmol/L (3.5-5.1)
[2021-03-17 06:08] LABS: WBC 0.5 thou/uL (4.0-11.0)
[2021-03-17 07:27] VITALS: BP 130/77
--- NOTE | 2021-03-17 07:30 | NUR ---
PT MAKING SLOW PROGRESS TOWARDS GOALS. ON O2 AT 3L PER NC (HOME O2 AT 2.5L) OVER NIGHT. DENIED ANY SOA WHILE AT REST. DRY OCCASIONAL COUGH NOTED.
--- NOTE | 2021-03-17 07:34 | NUR ---
PT MAKING SLOW PROGRESS TOWARDS GOALS. ON OPTIFLO AT 35l AND 78% OVER NIGHT. NO SOA REPORTED WHILE AT REST.
[2021-03-17 11:29] VITALS: BP 137/81
[2021-03-17 16:20] VITALS: BP 126/80
[2021-03-17 20:15] VITALS: BP 144/72
--- NOTE | 2021-03-17 23:27 | NUR ---
PT C/O "I'M COLD". ORAL TEMP 98.5. PT DENIES ANY SOA THOUGH HE IS TACHYPNEIC AND TACHYCARDIC (RR=24, JK=944). ON OPTIFLO O2 UP TO 60L, BLANKETS X2 ALREADY PLACED, ROOOM AIR TEMP UP TO 77 FROM 70. PT WILL ONLY SAY "I'M JUST COLD." DENIES ANY OTHER PROBLEM. RT CALLED.
[2021-03-18 00:18] LABS: BE(vivo) -2.7 mmol/L (-2 to +3); HCO3 19.7 mmol/L (22.0-26.0); PCO2 27.4 mmHg (35.0-45.0); pH 7.475 (7.360-7.450); sO2 89.5 % (92.0-98.0)
[2021-03-18 00:19] LABS: PO2 51.6 mmHg (80.0-100.0)
[2021-03-18 03:33] LABS: ABSOLUTE NEUTROPHILS 1.1 thou/uL (1.4-8.2); BASOPHILS 0.5 % (0.0-2.0); EOSINOPHILS 0.1 % (0.0-3.0); HEMATOCRIT 32.8 % (42.0-52.0); MCH 20.7 pg (26.0-34.0); MCHC 30.5 g/dL (28.0-37.0); MCV 67.9 fL (80.0-100.0); MONOCYTES 2.8 % (1.0-8.0); PLATELET COUNT 134 thou/uL (150-400); POLYS 58.6 % (36.0-66.0); RBC 4.83 mil/uL (4.50-6.00)
[2021-03-18 03:34] LABS: CALCIUM 7.3 mg/dL (8.5-10.1); CREATININE 1.6 mg/dL (0.7-1.3); POTASSIUM 5.1 mmol/L (3.5-5.1)
[2021-03-18 03:38] LABS: WBC 1.9 thou/uL (4.0-11.0)
--- NOTE | 2021-03-18 05:28 | NUR ---
0230: pt arrived to icu [place] bed from 3w. r.t. present w bipap at 100%. to icu bed,incont lg amt soft brown stool,cleaned . pt severely sob,diaphoretic,using abd accessory muscles to breathe. rr high 40's to 5o''s,very labored. pt unable to speak due to sob.pt very lethargic,lying w eyes open. febrile-temp 101 axillary. called immed, asked that e.r. physician intubate pt. dr. anthony up to intubate shortly there after. intubted without diff. 30mg etomidate & 120mg of succ's given.propofol started immed after intubation at 10mcg/kg/min. at 0255,while still in room,pt became bradycardic,40's-no pulse palpated. kenn sutherland called & cpr started immed. see kenn sutherland notes.pt pronounced by . notified of events.attempted to call friend listed, unable to leave message.
--- NOTE | 2021-03-18 08:35 | NUR ---
0976-RECEIVED PHONE CALL FROM PT'S DTR THRU [facility]. WHEN I TOOK THE PHONE, DTR WAS NO LONGER ON HOLD. I CALLED DTR CAROLYN AZAR ON # LISTED, IT WAS BUSY. I THEN CALLED PT'S EX SHERRY ASKEW,ALSO LISTED AUTH. CONTACT. WAS INFORMED OF PT'S COMING TO ICU,EVENTS THAT HAPPENED AND THAT PT DID NOT SURVIVE. ALL PT BELONGING'S WENT WITH PT TO [facility]. FAMILY WAS NOT LISTED ON FACE SHEET, WHERE PRIMARY RN LOOKED FOR NUMBER TO NOTIFY FAMILY.SEVERAL MINUTES WERE SPENT REPEATEDLY APOLOGIZING TO RE:CIRCUMSTANCES AND THAT THEY HAD NOT BEEN NOTIFIED.INFORMATION GIVEN RE:PROCESS OF HOME WHEN DECIDED, SECURITY RELEASING BODY TO HOME W ALL HIS BELONGINGS. WAS ASKING ABOUT KEYS TO HIS HOUSE AND STATED THEY WERE IN W PT'S BELOMGINGS. STATED SHE WOULD HER NIECE WHO LIVES IN [facility] TO DISCUSS ARRANGEMENTS. AGAIN, HEARTFELT APOLOGY WAS GIVEN TO TO EXTEND TO DTR.--VW
--- NOTE | 2021-03-19 07:31 | EKG ---
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 : 1955 Requested By: Lalo Gonzalez Order Number: [id number] MD: Jorge Luis Woodward Measurements Intervals [place] Rate: 140 P: 247 DC: 92 QRS: 61 QRSD: 131 T: 77 QT: 361 QTc: 551 Interpretive Statements Suspect AFIB Left bundle branch block Compared to ECG 03/10/2021 17:25:36 Atrial premature complex(es) now present Sinus pause or arrest now present Left bundle-branch block now present Aberrant conduction of supraventricular beat(s) no longer present ST (T wave) deviation no longer present Electronically Signed On 03-19-2021 7:31:35 BUSINESS SERVICES REPRESENTATIVE by Jorge Luis Woodward [email or web address] <ELECTRONICALLY SIGNED> By: Jorge Luis Woodward MD, FACC 03/19/21 0731 9 9 Jorge Luis Woodward MD, LOCATED WITHIN [facility] /EPI
--- NOTE | 2021-03-19 07:32 | EKG ---
[address] [address] ELECTROCARDIOGRAM REPORT Name: DAREK ASKEW Room #: 247-[facility] IN M.R.#: [id number] Admission: 03/08/21 Attend Phys: Lalo Gonzalez MD Discharge: 03/18/21 Date of : 55 Report #: [id number] [facility] Test Date: 2021-03-18 Test Time: 03:11:23 Pat Name: DAREK ASKEW Department: Room: [facility] Gender: M Dialysis Nurse: . : 1955 Requested By: Lalo Gonzalez Order Number: [id number] MD: Jorge Luis Woodward Measurements Intervals [place] Rate: 107 P: 63 PA: 118 QRS: 65 QRSD: 142 T: 38 QT: 341 QTc: 455 Interpretive Statements Sinus tachycardia Right bundle branch block Inferior infarct, acute Compared to ECG 03/18/2021 03:10:21 Right bundle-branch block now present Myocardial infarct finding now present Atrial premature complex(es) no longer present Sinus pause or arrest no longer present Left bundle-branch block no longer present Electronically Signed On 03-19-2021 7:31:52 MUSHROOM PACKER by Jorge Luis Woodward [email or web address] <ELECTRONICALLY SIGNED> By: Jorge Luis Woodward MD, FACC 03/19/21 0731 0 0 Jorge Luis Woodward MD, FAC /EPI
--- NOTE | 2021-03-19 07:50 | EKG ---
[address] [place] [address] ELECTROCARDIOGRAM REPORT Name: DAREK ASKEW Room #: 247-[facility] IN M.R.#: [id number] Admission: 03/08/21 Attend Phys: Lalo Gonzalez MD Discharge: 03/18/21 Date of : 55 Report #: [id number] [facility] Test Date: 2021-03-18 Test Time: 03:12:10 Pat Name: DAREK ASKEW Department: Room: [facility] Gender: M Studio Operations Engineer In Charge: . : 1955 Requested By: Lalo Gonzalez Order Number: [id number] MD: Ulysses Antonio Measurements Intervals [place] Rate: 95 P: 0 WI: QRS: 82 QRSD: 155 T: 44 QT: 337 QTc: 424 Interpretive Statements Junctional tachycardia Right bundle branch block Inferior infarct, acute Compared to ECG 03/18/2021 03:11:23 Sinus tachycardia no longer present Electronically Signed On 03-19-2021 7:50:22 INFANT TEACHER by Ulysses Antonio [email or web address] <ELECTRONICALLY SIGNED> By: Ulysses Antonio MD, [facility] 03/19/21 0750 1 1 Ulysses Antonio MD, [facility] /EPI
--- NOTE | 2021-03-20 11:22 | HC ---
[facility] [place] [address] CONSULTATION Name: DAREK ASKEW Room #: 247-P [facility] IN M.R.#: [id number] Admission: 03/08/21 Attend Phys: Lalo Gonzalez MD Discharge: 03/18/21 Date of : 55 Report #: [id number] THIS REPORT FOR: cc: FAM - Family physician unknown FAM - Family physician unknown Kimani Vásquez MD ~ DATE OF SERVICE: 03/16/2021 CHIEF COMPLAINT: Eschar on the toes of left foot. HISTORY OF PRESENT ILLNESS: This is a 66-year-old male patient who is currently in the ICU, has a history of diabetes mellitus, was originally admitted on 03/08/2021 with sore throat, nausea and vomiting. He was diagnosed with COVID. Prior to his arrival, he was noted to have hyperglycemia and acute kidney injury. He did develop atrial fibrillation, was started on amiodarone drip. He apparently developed a cool left foot with a lack of pulse and was noted to have a superficial femoral artery occlusion. He ultimately underwent a left femoral embolectomy and a left popliteal embolectomy with return of flow. He developed some ischemic changes to some of the toes. I have been asked to see him with regard to wound care. PAST MEDICAL HISTORY: Again, positive for COVID-19 infection, type 2 diabetes mellitus, acute kidney injury, mild rhabdomyolysis, hyperlipidemia, protein calorie malnutrition, benign prostatic hypertrophy. ALLERGIES: No known drug allergies. MEDICATIONS: Include Tylenol, alteplase, ascorbic acid, Lipitor, cholecalciferol, dexamethasone, doxycycline, famotidine, fentanyl, Arixtra, glipizide, glucagon, hydrocodone, insulin, lorazepam, metformin, ondansetron, tamsulosin. SOCIAL HISTORY: The patient denies alcohol or tobacco use. FAMILY HISTORY: Noncontributory. REVIEW OF SYSTEMS: CONSTITUTIONAL: The patient denies fever, chills, weight loss. NEUROLOGICAL: Denies focal weakness, numbness or tingling. EYES: The patient denies any visual changes, redness or drainage. ENT: The patient denies earache, nasal drainage or sore throat. CARDIOVASCULAR: The patient denies chest pain, palpitations, diaphoresis. PULMONARY: Denies cough, shortness of breath. GASTROINTESTINAL: Denies nausea or abdominal pain. ORTHOPEDIC: The patient notes very minimal discomfort in his lower extremities. Others systems are negative. [address] [address] CONSULTATION Name: DAREK ASKEW Room #: 247-P [facility] IN ..#: [id number] Admission: 03/08/21 Attend Phys: Lalo Gonzalez MD Discharge: 03/18/21 Date of : 55 Report #: [id number] PHYSICAL EXAMINATION: VITAL SIGNS: Include temperature 36.1, pulse 98, respiration of 23, blood pressure 109/55. GENERAL: This is a somewhat chronically ill-appearing male patient who appears to be in no distress. HEENT: Head normocephalic. Nose and throat are clear. NECK: Supple. LUNGS: Diminished. HEART: Irregular. ABDOMEN: Soft, nontender. EXTREMITIES: Lower extremities demonstrate feet are warm and dry. There are some ischemic changes to the tips of each toe with actually some eschar present on the tip of the fifth toe and great toe. None of these areas are open and none are infected. NEUROLOGIC: The patient is alert and oriented, does move all 4 extremities. LABORATORY DATA: Include sodium 141, potassium 4.6, chloride 109, CO2 of 23, BUN 29, creatinine 1.1, glucose 263. Albumin is 1.1. White blood cell count is 0.5 with a hemoglobin of 9.3. CLINICAL IMPRESSION: 1. Ischemic changes to the toes of the left foot following occlusion of the superficial femoral artery, status post embolectomy. 2. Diabetes mellitus. 3. Severe protein-calorie malnutrition. 4. Atrial fibrillation. 5. Acute kidney injury. RECOMMENDATIONS: At this point in time, we will recommend Betadine paint to the areas of eschar involving the toes of the left foot. Recommend Prevalon boots while he was in bed for pressure prophylaxis. No debridement will be required at this time, there is no evidence of infection. Hopefully, the eschar will eventually slough away as he granulates and epithelializes beneath it as it is presently protective and better than any other dressing we can apply. We will recommend aggressive nutritional support to maximize wound healing and treatment of other underlying medical issues. I appreciate being asked to see him in consultation. <ELECTRONICALLY SIGNED> By: Kimani Vásquez MD 03/20/21 1122 [id number] 0114 Kimani Vásquez MD /nt
== END 2021-03-18 03:23 | DRG 853 ==
LOC: ER 19:12 → 3W 21:07 → ICU 21:07 → EROBS 21:07 → 3W 03-10 02:11 → ICU 03-13 05:10 → 3W 03-13 05:10 → ICU 03-18 02:47
PROVIDERS: Emergency Medicine; Hospitalist; Internal Medicine Hematology & Oncology; Nurse Practitioner Family; Specialist; ADMIT Internal Medicine; ATTEND Internal Medicine
PROC: XW033E5 Introduction of Remdesivir Anti-infective into Peripheral Vein, Percutaneous Approach, New Technology Group 5 (ICD-10-PCS; principal; 2021-03-09)
PROC: B4181ZZ Fluoroscopy of Bilateral Renal Arteries using Low Osmolar Contrast (ICD-10-PCS; 2021-03-13)
PROC: 047Q3ZZ Dilation of Left Anterior Tibial Artery, Percutaneous Approach (ICD-10-PCS; 2021-03-13)
PROC: 04CQ3ZZ Extirpation of Matter from Left Anterior Tibial Artery, Percutaneous Approach (ICD-10-PCS; 2021-03-13)
PROC: 04CN3ZZ Extirpation of Matter from Left Popliteal Artery, Percutaneous Approach (ICD-10-PCS; 2021-03-13)
PROC: 047N3DZ Dilation of Left Popliteal Artery with Intraluminal Device, Percutaneous Approach (ICD-10-PCS; 2021-03-13)
PROC: B41D1ZZ Fluoroscopy of Aorta and Bilateral Lower Extremity Arteries using Low Osmolar Contrast (ICD-10-PCS; 2021-03-13)
PROC: 04CL3ZZ Extirpation of Matter from Left Femoral Artery, Percutaneous Approach (ICD-10-PCS; 2021-03-13)
PROC: 04CU3ZZ Extirpation of Matter from Left Peroneal Artery, Percutaneous Approach (ICD-10-PCS; 2021-03-13)
PROC: 5A0945A Assistance with Respiratory Ventilation, 24-96 Consecutive Hours, High Flow/Velocity Cannula (ICD-10-PCS; 2021-03-13)
PROC: 5A0945A Assistance with Respiratory Ventilation, 24-96 Consecutive Hours, High Flow/Velocity Cannula (ICD-10-PCS; 2021-03-15)
PROC: 02HV33Z Insertion of Infusion Device into Superior Vena Cava, Percutaneous Approach (ICD-10-PCS; 2021-03-15)
PROC: 5A09357 Assistance with Respiratory Ventilation, Less than 24 Consecutive Hours, Continuous Positive Airway Pressure (ICD-10-PCS; 2021-03-15)
PROC: 5A0945A Assistance with Respiratory Ventilation, 24-96 Consecutive Hours, High Flow/Velocity Cannula (ICD-10-PCS; 2021-03-16)
PROC: 5A12012 Performance of Cardiac Output, Single, Manual (ICD-10-PCS; 2021-03-18)
DX: A41.9 Sepsis, unspecified organism (principal); E11.10 Type 2 diabetes mellitus with ketoacidosis without coma; U07.1 COVID-19; J12.82 Pneumonia due to coronavirus disease 2019; E43 Unspecified severe protein-calorie malnutrition; J80 Acute respiratory distress syndrome; N17.9 Acute kidney failure, unspecified; I31.9 Disease of pericardium, unspecified; M62.82 Rhabdomyolysis; I82.622 Acute embolism and thrombosis of deep veins of left upper extremity; D68.59 Other primary thrombophilia; I77.1 Stricture of artery; E86.0 Dehydration; N40.0 Benign prostatic hyperplasia without lower urinary tract symptoms; E78.5 Hyperlipidemia, unspecified; I48.91 Unspecified atrial fibrillation; E87.5 Hyperkalemia; Z60.2 Problems related to living alone; R65.20 Severe sepsis without septic shock; E83.41 Hypermagnesemia; K64.5 Perianal venous thrombosis; D69.6 Thrombocytopenia, unspecified; T50.905A Adverse effect of unspecified drugs, medicaments and biological substances, initial encounter; Y92.89 Other specified places as the place of occurrence of the external cause; Z83.3 Family history of diabetes mellitus
CPT/HCPCS: 10078; 10080; 10779; 10879; 48889; 50101; 50386; 50403; 50455; 51165; 51301; 51412; 52287; 54118; 56524; 56526; 56527; 56531; 56534; 58585; 58857; 62110; 62900